=== PATIENT | male | born 1955 | race Caucasian/White ===

== ENCOUNTER 2019-02-19 16:25 | Emergency (ER) | payer MEDICARE ==
[2019-02-19] MEDS ORDERED: Lidocaine 1% w/Epinephrine 1:100K 20 ML VIAL ONE (16:58)
[2019-02-19] MEDS ORDERED: Bacitracin Zinc 1 Packet ONE (17:41)
== END 2019-02-19 17:56 | disposition home or self-care (01) ==
LOC: ERS 16:25
DX: S81.012A Laceration without foreign body, left knee, initial encounter (principal); F17.210 Nicotine dependence, cigarettes, uncomplicated; W17.89XA Other fall from one level to another, initial encounter
CPT/HCPCS: 12002; J2001